=== PATIENT | female | born 1955 | race Caucasian/White ===

== ENCOUNTER 2016-11-06 06:26 | Emergency (ER) ==
[2016-11-06] MEDS ORDERED: PEPCID IV ONE (06:57)
[2016-11-06] MEDS ORDERED: SODIUM CHLORIDE 0.9% INJ ONE (06:57)
[2016-11-06] MEDS ORDERED: NS 1,000 ML IV ONE (06:57)
[2016-11-06] MEDS ORDERED: DECADRON IV ONE (06:57)
[2016-11-06] MEDS ORDERED: BENADRYL IV ONE (06:57)
[2016-11-06 07:13] LABS: MANUAL DIFF NEEDED? NO
[2016-11-06 07:15] LABS: BASO% 0.4 % (0.0-0.8); EOS# 0.65 X1000 (0.0-0.7); HEMATOCRIT 39.6 % (37.0-47.0); HEMOGLOBIN 12.5 g/dL (12.0-16.0); IMM GRAN# 0.02 X1000 (0.0-0.04); IMM GRAN% 0.2 % (0.0-0.5); LYMPH# 3.08 X1000 (1.2-3.4); LYMPH% 33.3 % (20.5-51.1); MCH 30.6 PG (27-31); MCHC 31.6 g/dL (33-37); MCV 96.8 FL (81-99); MONO# 0.79 X1000 (0.11-0.59); MONO% 8.5 % (1.7-9.3); MPV 11.2 FL (7.4-10.4); NEUT% 50.6 % (42.2-75.2); PLT 289 X1000 (130-400); RBC 4.09 XMIL (4.2-5.4)
--- NOTE | 2016-11-06 07:19 | PROVIDER DOCUMENTATION ---
HPI-EENT General - General Chief Complaint: Allergic Reaction Stated Complaint: facial swelling Time Seen by Provider: 11/06/16 06:28 Source: patient Allergies/Adverse Reactions: Patient Allergies Allergy/AdvReac Type Severity Reaction Status Date / Time No Known Allergies Allergy Verified 11/06/16 06:45 Home Medications: Home Medication List Medication Instructions Recorded Confirmed Last Taken Type Nadolol 20 mg PO DAILY 07/07/16 11/06/16 11/05/16 22:00 History PRAVAstatin [Pravachol] 40 mg PO QHS 07/07/16 11/06/16 11/05/16 22:00 History Warfarin [Coumadin] 5 mg PO QHS 07/07/16 11/06/16 11/04/16 22:00 History Diphenhydramine [Benadryl] 50 mg PO TID #10 capsule 11/06/16 Unknown Rx Epinephrine Auto Injector [Epipen] 0.3 mg IM DIRECTED PRN PRN #1 11/06/16 Unknown Rx [email or web address] Famotidine [Pepcid] 40 mg PO DAILY #20 tablet 11/06/16 Unknown Rx Methylprednisolone [Medrol Dosepak] 4 mg PO DIRECTED #1 package 11/06/16 Unknown Rx - History of Present Illness-EENT General Nature of Presenting Problem: R facial and b/l lower lip swelling noticed 4 AM this morning. Reports she took one dose of Penicillin last night because there was a small infection at R corner area. She had the PCN pill from her previous dental procedure, but she is not sure the medication is or not. Pt denies on ACEI for HTN. Denies throat swelling and no SOB. 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 Denies any concerns for bleeding. EENT Location: reports: facial Quality of Pain: reports: none Severity: reports: moderate Onset/Duration: reports: 4-6 hours ago Timing: reports: still present Prearrival Treatment: Initiated no prearrival treatment Associated Symptoms: reports: facial pain/swelling. denies: cough, drooling, ear drainage, fever, nasal congestion/drainage, poor fluid intake, poor solids intake, sinus infection, sore throat, tooth pain Similar Symptoms Previously?: No Recently seen or treated by another doctor?: No - Throat/Dental Throat/Dental Problem Symptoms: reports: none Throat/Dental Problem Context: denies: recent dental extractions, dental decay Recently seen a dentist or have an appointment?: No Review of Systems - Adult - REVIEW OF SYSTEMS - ADULT Constitutional: reports: see HPI. denies: yoanna Eyes: reports: no symptoms reported Ears, Nose, Mouth & Throat: reports: see HPI, other (Lip swelling) Cardiovascular: reports: no symptoms reported Respiratory: reports: no symptoms reported Gastrointestinal: reports: see HPI Genitourinary: reports: see HPI Musculoskeletal: reports: see HPI Integumentary: reports: see HPI Neurological: reports: see HPI All Other Systems: Reviewed and Negative Past History - Adult - PAST MEDICAL HISTORY-ADULT Review of Records: reports: Old Records Reviewed, Nursing Assessment Review, Medications Reviewed, Social history reviewed & non-contributory. Major Childhood Illnesses: reports: denies history Cardiovascular: reports: hyperlipidemia Gastrointestinal: reports: cholelithiasis Additional History: Factor 9 - PRIOR SURGERIES/PROCEDURES Surgical/Procedure History: reports: appendectomy, CABG, BTL, other (AAA repair ) - IMMUNIZATION STATUS Childhood Immunizations: See Nurse Assessment Flu Vaccine: See Nurse Assessment Physical Exam- EENT - Physical Exam EENT Initial Vital Signs Reviewed: Yes General Appearance: alert, no apparent distress Eye Exam: bilateral eye: PERRL, EOMI Nasal Exam: normal inspection Throat Exam: normal mouth inspection. negative: foreign body, pharynx tenderness, tongue swollen, tonsillar exudate, tonsillar swelling, trismus, uvula swelling Mouth,Throat: 1 - Lower lip moderate to severe swelling Neck: non-tender, full range of motion Respiratory: chest non-tender, lungs clear, normal breath sounds, no pleuratic chest pain, no respiratory distress, no accessory muscle use Cardiovascular: normal peripheral pulses, regular rate, rhythm, no edema, no gallop, other (Metal valve ticking) Abdominal Exam: normal bowel sounds, non tender, soft, no organomegaly Lymphatic: no adenopathy Back Exam: normal inspection, no CVA tenderness, no vertebral tenderness Extremity: normal range of motion, non-tender, normal gait, normal inspection, no pedal edema, no calf tenderness Integumentary: normal color, normal turgor, warm/dry Neurologic: no motor/sensory deficits, abnormal gait Psych/Mental Status: normal mood/affect, normal thought content, normal thought process, oriented x 3 Progress - PLAN OF CARE/RESULTS Progress/Plan/Lab Results: Laboratory Results - last 24 hr 11/06/16 11/06/16 07:00 07:00 WBC 9.24 RBC 4.09 L Hgb 12.5 Hct 39.6 MCV 96.8 MCH 30.6 MCHC 31.6 L RDW Std Deviation 13.8 Plt Count 289 MPV 11.2 H Immature Gran % (Auto) 0.2 Neut % (Auto) 50.6 Lymph % (Auto) 33.3 Woodson % (Auto) 8.5 Eos % (Auto) 7.0 Baso % (Auto) 0.4 Immature Gran # (Auto) 0.02 Neut # (Auto) 4.66 Lymph # (Auto) 3.08 Woodson # (Auto) 0.79 H Eos # (Auto) 0.65 Baso # (Auto) 0.04 Sodium 143 Potassium 3.8 Chloride 103 Carbon Dioxide 26 Anion Gap 14 BUN 10 Creatinine 0.8 Estimated GFR/1.73 m2 > 60 BUN/Creatinine Ratio 13 Glucose 98 Calculated Osmolality 284 Calcium 9.8 Total Bilirubin 0.63 AST 18 ALT 13 Alkaline Phosphatase 84 Total Protein 7.7 Albumin 4.1 Globulin 3.6 Albumin/Globulin Ratio 1.1 Orders Category Date Time Status Saline Loc NOW Care 11/06/16 06:57 Active CBC WITH DIFF [HEME] Stat Lab 11/06/16 07:00 Completed COMPREHENSIVE METABOLIC PANEL [CHEM] Stat Lab 11/06/16 07:00 Completed PROTIME WITH INR [COAG] Stat Lab 11/06/16 06:57 Ordered PTT [COAG] Stat Lab 11/06/16 06:57 Ordered 0.9% Sodium Chloride Inj [Ns] 1,000 ml Med 11/06/16 06:57 Discontinued IV 999 mls/hr Dexamethasone [Decadron] Med 11/06/16 06:57 Discontinued 20 mg IV NOW ONE Diphenhydramine [Benadryl] Med 11/06/16 06:57 Discontinued 50 mg IV NOW ONE Famotidine [Pepcid] Med 11/06/16 06:57 Discontinued 20 mg IV NOW ONE Sodium Chloride 0.9% Med 11/06/16 06:57 Discontinued 5 - 10 ml INJ NOW ONE Vital Signs Temp Pulse Resp BP Pulse Ox 11/06/16 09:04 98.3 F 55 L 16 136/64 100 11/06/16 06:30 98.3 F 62 18 157/72 100 No Known Allergies Allergy (Verified 11/06/16 06:45) Nadolol 20 mg PO DAILY 07/07/16 PRAVAstatin [Pravachol] 40 mg PO QHS 07/07/16 Warfarin [Coumadin] 5 mg PO QHS 07/07/16 Laboratory 11/06/16 11/06/16 07:00 07:00 WBC 9.24 RBC 4.09 L Hgb 12.5 Hct 39.6 MCV 96.8 MCH 30.6 MCHC 31.6 L RDW Std Deviation 13.8 Plt Count 289 MPV 11.2 H Immature Gran % (Auto) 0.2 Neut % (Auto) 50.6 Lymph % (Auto) 33.3 Woodson % (Auto) 8.5 Eos % (Auto) 7.0 Baso % (Auto) 0.4 Immature Gran # (Auto) 0.02 Neut # (Auto) 4.66 Lymph # (Auto) 3.08 Woodson # (Auto) 0.79 H Eos # (Auto) 0.65 Baso # (Auto) 0.04 Sodium 143 Potassium 3.8 Chloride 103 Carbon Dioxide 26 Anion Gap 14 BUN 10 Creatinine 0.8 Estimated GFR/1.73 m2 > 60 BUN/Creatinine Ratio 13 Glucose 98 Calculated Osmolality 284 Calcium 9.8 Total Bilirubin 0.63 AST 18 ALT 13 Alkaline Phosphatase 84 Total Protein 7.7 Albumin 4.1 Globulin 3.6 Albumin/Globulin Ratio 1.1 - REASSESSMENT Reassessment #1 Time Reassessed: 09:32 Status: improving (Pt feels much better and ready to go home. No thraot swelling and no SOB) Departure - Departure Time of Disposition Order: 09:32 DIAGNOSIS: Allergic reaction Qualifiers: Encounter type: initial encounter Qualified Code(s): T78.40XA - Allergy, unspecified, initial encounter Angioedema Qualifiers: Encounter type: initial encounter Qualified Code(s): T78.3XXA - Angioneurotic edema, initial encounter Disposition: HOME 01 Certified Medical Emergency: Emergent Condition: Stable Additional Instructions: Follow up with regular MD in 1-2 days. Return to ER if your symptoms worsen. Discontinue all medications which can cause angioedema. Prescriptions: Diphenhydramine [Benadryl] 50 mg PO TID #10 capsule Epinephrine Auto Injector [Epipen] 0.3 mg IM DIRECTED PRN PRN #1 [email or web address] PRN Reason: Shortness Of Breath Methylprednisolone [Medrol Dosepak] 4 mg PO DIRECTED #1 package Famotidine [Pepcid] 40 mg PO DAILY #20 tablet Referrals: Robbin Wilson Jr, MD [Primary Care Provider] -
[2016-11-06 07:41] LABS: AGAP 14; ALBUMIN 4.1 g/dL (3.5-5.0); ALKALINE PHOSPHATASE 84 U/L (32-104); BUN 10 mg/dL (8-22); CALCIUM 9.8 mg/dL (8.8-10.2); CHLORIDE 103 mmol/L (98-107); COSMO 284; GOT 18 U/L (10-30); GPT 13 U/L (10-36); POTASSIUM 3.8 mmol/L (3.5-5.1); SODIUM 143 mmol/L (136-145); TCO2 26 mmol/L (25-35); TOTAL BILIRUBIN 0.63 mg/dL (0.20-1.00); TOTAL PROTEIN 7.7 g/dL (6.3-8.3)
[2016-11-06 09:04] VITALS: BP 136/64
== END 2016-11-06 10:00 | disposition home or self-care (01) ==
LOC: ED 06:26
DX: T78.3XXA Angioneurotic edema, initial encounter (principal); T78.40XA Allergy, unspecified, initial encounter; R22.0 Localized swelling, mass and lump, head; E78.5 Hyperlipidemia, unspecified; Z95.1 Presence of aortocoronary bypass graft; Z79.899 Other long term (current) drug therapy; Z79.01 Long term (current) use of anticoagulants
CPT/HCPCS: 80053; 85025; J1200; J7030; S0028